=== PATIENT | male | born 1985 | race Two or more races ===

== ENCOUNTER 2021-08-26 11:16 | Emergency (ER) | payer SELFPAY ==
[~2021-08-26] VITALS: Ht 170.2 cm; Wt 95.3 kg
[2021-08-26] MEDS ORDERED: IBUPROFEN 800 MG TAB PO ONE (13:15)
== END 2021-08-26 13:09 | disposition home or self-care (01) ==
LOC: ER 11:16
DX: S93.602A Unspecified sprain of left foot, initial encounter (principal); F17.210 Nicotine dependence, cigarettes, uncomplicated; W19.XXXA Unspecified fall, initial encounter; Y93.89 Activity, other specified; Y92.89 Other specified places as the place of occurrence of the external cause; Y99.8 Other external cause status
CPT/HCPCS: 73600; 73630